=== PATIENT | male | born 1995 ===

== ENCOUNTER 2021-05-15 03:19 | Emergency (ER) | payer OTHER, SELFPAY ==
[2021-05-15 03:46] VITALS: BP 122/72; PULSE 57; RESP 16; TEMP 36.9; O2SAT 100; BMI 19.8
== END 2021-05-15 06:18 | disposition left against medical advice (07) ==
LOC: HO.ED 06:14
PROVIDERS: Emergency Provider Emergency Medicine; PCP Internal Medicine
DX: K08.89 Other specified disorders of teeth and supporting structures (principal)
CPT/HCPCS: 99281; 99282

== ENCOUNTER 2022-12-03 13:11 | Outpatient (AMB) | payer OTHER, SELFPAY ==
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
[2022-12-03 13:17] VITALS: BP 116/72; PULSE 87; O2SAT 99; BMI 19.3
== END 2022-12-03 14:04 | disposition home or self-care (01) ==
PROVIDERS: PCP Nurse Practitioner Family; Visit Provider Nurse Practitioner Family
DX: R19.7 Diarrhea, unspecified (principal); L98.9 Disorder of the skin and subcutaneous tissue, unspecified; G47.00 Insomnia, unspecified; F32.89 Other specified depressive episodes; F41.9 Anxiety disorder, unspecified
CPT/HCPCS: 96127; 99204

== ENCOUNTER 2023-02-09 11:14 | Outpatient (AMB) | payer OTHER, SELFPAY ==
[2023-02-09 11:17] VITALS: BP 112/76; PULSE 114; O2SAT 99; BMI 19.8
--- NOTE | 2023-02-09 11:17 | A.OFFPC_ITS ---
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 Allergies No Known Allergies Allergy (Verified 02/09/23 11:30) Medication List - Last Reconciled 02/09/23 by HUSSEIN Purvis docusate sodium (Colace) 100 mg PO DAILY PRN escitalopram oxalate 5 mg PO DAILY hydroxyzine HCl 50 mg (2 x 25 mg) PO BEDTIME PRN omeprazole 20 mg PO DAILY Tobacco use date assessed: 02/09/23 Dental Screening Dental Screen Date: 02/09/23 Did you have a dental visit in the last 12 months?: Yes Did you have a dental problem in the last 6 months where you did not have access to dental care?: No Was dental information given to patient?: Patient has dentist HPI discuss sleeping/eye exam HPI Details Patient is a 27-year-old male who presents today for an eye exam. Medical history significant for depression, GERD, PTSD, anxiety, asthma, insomnia. Reports still feeling anxious on escitalopram. Reports hydroxyzine is not helping much with insomnia. Reports decreased hearing in his right ear for long time now, will refer for hearing test. Reports he needs eye exam to apply for SSI, reports being on SSI in the past due to cannot see out of his right eye and left eye blurry vision, also reports he needs glasses, will refer to Ophthalmology. No shortness of breath or chest pain. Started seeing counseling for mental health. Patient was encouraged to complete blood work. [facility] Surgical History S/P appendectomy Family History Mother No problems noted. Father No problems noted. Social History Housing: House Patient Tobacco Use Status: Never used Tobacco service: No Current occupational status: unemployed Cognitive needs: No Hearing needs: No Vision needs: Yes Questionnaire PHQ-9 Over the last 2 weeks, how often have you been bothered by any of the following problems? 1. Little interest or pleasure in doing things: nearly every day 2. Feeling down, depressed, or hopeless: nearly every day 3. Trouble falling or staying asleep, or sleeping too much: nearly every day 4. Feeling tired or having little energy: nearly every day 5. Poor appetite or overeating: nearly every day 6. Feeling bad about yourself - or that you are a failure or have let yourself or your family down: not at all 7. Trouble concentrating on things, such as reading the newspaper or watching television: nearly every day 8. Moving or speaking so slowly that other people could have noticed. Or the opposite - being so fidgety or restless that you have been moving around a lot more than usual: nearly every day 9. Thoughts that you would be better off or of hurting yourself in some way: not at all Total score: 21 Depression Screening Interpretation: Positive Depression Screening Follow-up: New Medication prescribed and Community Mental Health Worker F/U Depression Screening Done: Yes 13306 - PHQ-9 Billing: Yes Source: Developed by Drs. Reagan Medrano, Ngoc Washburn, Kwaku Alas and colleagues, with an educational carleen from [employer]. Thrive Questionnaire Date Thrive assessed: 12/03/22 AUDIT C Alcohol Use Questionnaire (AUDIT-C) 1. How often do you have a drink containing alcohol?: Never 3. How often do you have six or more drinks on one occasion?: Never Total Score: 0 Score Reviewed/Action Taken: No PASCUAL-7 AMB Questionnaire PASCUAL-7 Date PASCUAL - 7 assessed: 12/03/22 Feeling nervous, anxious, or on edge: 3 = Nearly every day Not being able to stop or control worryin = Nearly every day Worrying too much about different things: 3 = Nearly every day Trouble relaxin = Nearly every day Being so restless that it is hard to sit still: 3 = Nearly every day Becoming easily annoyed or irritable: 3 = Nearly every day Feeling afraid as if something awful might happen: 0 = Not at all Total PASCUAL-7 score (0-4 normal; 5-9 mild; 10-14 moderate; 15-21 severe): 18 Source: Developed by Drs. Reagan Medrano, Kwaku Fuenteske and colleagues, with an educational carleen from [employer]. PASCUAL-7 Assessment Billing PASCUAL-7 Assessment Tool: PASCUAL-7 Assessment 65181 Review of Systems Const Denies body aches, Denies chills, Denies fever(s) and Denies headache(s) Eyes Reports as per HPI ENT Reports as per HPI, Denies dizziness, Denies otalgia, Denies headache(s), Denies nasal discharge, Denies sinus pain and Denies sore throat Card Denies chest pain, Denies edema, Denies lightheadedness and Denies dyspnea Resp Denies cough, Denies dyspnea and Denies wheezing GI Denies abdominal pain Denies dysuria Musc Denies myalgias Skin/Breast Denies rash Neuro Denies dizziness and Denies headache(s) Aller/Immun Denies wheezing Physical exam (Primary Care) Vital Signs: Last Vital Signs Pulse 114 H 02/09/23 11:17 BP 112/76 02/09/23 11:17 Pulse Ox 99 02/09/23 11:17 Oxygen Delivery Method Room Air 02/09/23 11:17 BMI result Body Mass Index 19.8 Tobacco/Smoking Status: Tobacco use Status Tobacco use date assessed 02/09/23 02/09/23 11:18 Patient Tobacco Use Status Never used Tobacco 02/09/23 11:18 PHQ-9: PHQ-9 Score PHQ-9: Total score 21 02/09/23 11:32 Depression Screening Interpretation: Positive Depression Screening Follow-up: New Medication prescribed and Community Mental Health Worker F/U Thrive Assessment: Date of Thrive Assessment Date Thrive assessed 12/03/22 02/09/23 11:18 Const General: cooperative and no acute distress Orientation/consciousness: patient oriented x3 HENMT Head: Yes normocephalic and Yes atraumatic Ears: TM's normal bilaterally Face and sinus: Yes sinuses nontender Mouth: oropharynx normal and moist mucous membranes Throat: Yes posterior oropharynx normal Eyes General: appearance normal, both eyes and all related structures Pupils: Equal, round and reactive pupils present EOM: EOMs intact bilaterally Neck Neck: Yes normal visual inspection and Yes full ROM Resp Effort & Inspection: normal respiratory effort and able to speak in complete sentences Auscultation: clear to auscultation bilaterally, no crackles, no rales, no rhonchi and no wheezes Cardio Rate: regular rate Rhythm: regular rhythm Heart sounds: S1 normal heart sound present and S2 normal heart sound present GI Auscultation: normal bowel sounds Skin General skin exam: no rashes or lesions noted Neuro General: patient oriented x3 Cranial nerves: Yes Equal, round and reactive pupils present Gait exam (Neuro): Normal gait present Extrem General: Yes full ROM and No edema Office Procedures Vision Screening Right Eye: 0/0 Left Eye: 20/100 Bilateral: 20/50 Color: Pass Corrected: Fail Steropsis: Pass Overall Vision Screening Results: Fail 25029 - Vision Screening Assessment and Plan Assessment & Plan (1) Decreased hearing of right ear: Code(s): H91.91 - Unspecified hearing loss, right ear Plan: Referral for hearing test (2) Eye exam abnormal: Code(s): H57.9 - Unspecified disorder of eye and adnexa Plan: Failed vision screening Ophthalmology referral for an evaluation and treatment Patient does not drive (3) Insomnia: Code(s): G47.00 - Insomnia, unspecified Plan: Reinforced sleep hygiene Start trazodone 25 mg at bedtime p.r.n. Continue hydroxyzine 50 mg at bedtime p.r.n. (4) Depression: Code(s): F32.A - Depression, unspecified Qualifiers: Depression Type: other depression Qualified Code(s): F32.89 - Other specified depressive episodes Plan: Continue to follow-up with counseling Increase escitalopram to 10 mg daily and follow-up in 2 months (5) Anxiety: Code(s): F41.9 - Anxiety disorder, unspecified Plan: Same as above Orders: Orders AMB Vision Screening Today Z01.00 - Encounter for examination of eyes and vision without abnormal findings Referrals Audiology Referral H91.91 - Unspecified hearing loss, right ear Ophthalmology Referral H57.9 - Unspecified disorder of eye and adnexa Medications: New escitalopram oxalate 10 mg PO DAILY 30 tabs 1RF F32.A - Depression, unspecified, F41.9 - Anxiety disorder, unspecified trazodone 25 mg (1/2 x 50 mg) PO BEDTIME PRN 14 tabs 0RF insomnia G47.00 - Insomnia, unspecified Discontinued escitalopram oxalate Discontinued Reason: Doctor's Order 5 mg PO DAILY 30 tabs 1RF F32.A - Depression, unspecified, F41.9 - Anxiety disorder, unspecified Coding Level of Care Code Est Pt Level 4 (58171) Diagnoses Decreased hearing of right ear H91.91 Eye exam abnormal H57.9 Insomnia G47.00 Other depression F32.89 Depression Type: other depression Anxiety F41.9 CPT Codes Vision Screening - Vision Screenin - Vision Screening ([id number]) Additional Codes PASCUAL-7 Assessment Billing - PASCUAL-7 Assessment Tool: PASCUAL-7 Assessment 94102 ([id number])
== END 2023-02-09 11:42 | disposition home or self-care (01) ==
PROVIDERS: PCP Nurse Practitioner Family; Visit Provider Nurse Practitioner Family
DX: H91.91 Unspecified hearing loss, right ear (principal); H57.9 Unspecified disorder of eye and adnexa; G47.00 Insomnia, unspecified; F32.89 Other specified depressive episodes; F41.9 Anxiety disorder, unspecified
CPT/HCPCS: 96127; 99173; 99214

== ENCOUNTER 2023-09-27 09:18 | Outpatient (AMB) | payer OTHER, SELFPAY ==
[2023-09-27 09:28] VITALS: BP 102/68; PULSE 98; O2SAT 97; BMI 19.5
--- NOTE | 2023-09-27 09:28 | MHC.PC.OV ---
Vital Signs 09/27/23 09:28 Height 5 ft 8 in Weight 128 lb 0.8 oz BMI 19.5 BP 102/68 Blood Pressure Location Lt brachial Position Sitting Pulse 98 Pulse Source Pulse Oximeter Pulse Oximetry (%) 97 Oxygen Delivery Method Room Air Intake Visit Reasons: Annual Exan-BACO pt Intake Note: Patient is here today for a physical. Special Education Associate Required: No Allergies No Known Allergies Allergy (Verified 09/27/23 10:29) Medication List - Last Reconciled 09/27/23 by Raul Basurto MD docusate sodium (Colace) 100 mg PO DAILY PRN escitalopram oxalate 10 mg PO DAILY hydroxyzine HCl 50 mg (2 x 25 mg) PO BEDTIME PRN omeprazole 20 mg PO DAILY trazodone 50 mg PO BEDTIME Tobacco use date assessed: 09/27/23 Dental Screening Dental Screen Date: 09/27/23 Did you have a dental visit in the last 12 months?: No Did you have a dental problem in the last 6 months where you did not have access to dental care?: No Was dental information given to patient?: Patient has dentist HPI Annual Exan-BACO pt HPI Details 28-year-old male presents to the office requesting an annual physical. I will be assuming his care as his primary provider has left the practice. Patient is reporting history of anxiety, PTSD for which he is on disability. He is not working currently. Taking trazodone and citalopram as medications. He has a therapist in [place]. Recently he has been assigned a psychiatrist. Also complaining of lower back pain. Worse on bending forwards. No history of fall or injury. [facility] Medical History (Updated 09/27/23 @ 10:31 by Raul Basurto MD) Anxiety PTSD (post-traumatic stress disorder) Surgical History S/P appendectomy Family History Mother No problems noted. Father No problems noted. Social History Housing: House Patient Tobacco Use Status: Never used Tobacco service: No Current occupational status: unemployed Cognitive needs: No Hearing needs: No Vision needs: Yes Questionnaire PHQ-9 Over the last 2 weeks, how often have you been bothered by any of the following problems? 1. Little interest or pleasure in doing things: not at all 2. Feeling down, depressed, or hopeless: not at all 3. Trouble falling or staying asleep, or sleeping too much: not at all 4. Feeling tired or having little energy: not at all 5. Poor appetite or overeating: not at all 6. Feeling bad about yourself - or that you are a failure or have let yourself or your family down: not at all 7. Trouble concentrating on things, such as reading the newspaper or watching television: not at all 8. Moving or speaking so slowly that other people could have noticed. Or the opposite - being so fidgety or restless that you have been moving around a lot more than usual: not at all 9. Thoughts that you would be better off or of hurting yourself in some way: not at all Total score: 0 Depression Screening Interpretation: Negative Depression Screening Done: Yes 48893 - PHQ-9 Billing: Yes Source: Developed by Drs. Reagan Medrano, Ngoc Washburn, Kwaku Alas and colleagues, with an educational carleen from [employer]. Thrive Questionnaire Date Thrive assessed: 09/27/23 I am a: Patient What is your living situation today?: I have a steady place to live Within the past 12 months, did the food you bought not last and you didn't have the money to get more?: Never true Within the past 12 months, did you worry whether your food would run out before you got money to buy more?: Never true Do you have trouble paying for medicines?: No Do you have trouble getting transportation to medical appointments?: No Do you have trouble paying your heating and electricity bill?: No Do you have trouble taking care of your child, family member or friend?: No Do you have trouble with day-to-day activities such as bathing, preparing meals, shopping, managing finances, etc.?: No Are you currently unemployed and looking for a job?: No Are you interested in more education?: No Please select the resources that you would like help with: None Currently or been in a relationship where the following occur: No concerns reported THRIVE Score: 0 AUDIT C Alcohol Use Questionnaire (AUDIT-C) 1. How often do you have a drink containing alcohol?: Never 3. How often do you have six or more drinks on one occasion?: Never Total Score: 0 Score Reviewed/Action Taken: No PASCUAL-7 AMB Questionnaire PASCUAL-7 Date PASCUAL - 7 assessed: 09/27/23 Feeling nervous, anxious, or on edge: 0 = Not at all Not being able to stop or control worryin = Not at all Worrying too much about different things: 0 = Not at all Trouble relaxin = Not at all Being so restless that it is hard to sit still: 0 = Not at all Becoming easily annoyed or irritable: 0 = Not at all Feeling afraid as if something awful might happen: 0 = Not at all Total PASCUAL-7 score (0-4 normal; 5-9 mild; 10-14 moderate; 15-21 severe): 0 Source: Developed by Drs. Reagan Medrano, Ngoc Washburn, Kwaku Alas and colleagues, with an educational carleen from [employer]. PASCUAL-7 Assessment Billing PASCUAL-7 Assessment Tool: PASCUAL-7 Assessment 41252 Physical exam (Primary Care) Vital Signs: Last Vital Signs Pulse 98 09/27/23 09:28 BP 102/68 09/27/23 09:28 Pulse Ox 97 09/27/23 09:28 Oxygen Delivery Method Room Air 09/27/23 09:28 Care Plan Goal for BP management: Blood pressure is stable. BMI result Body Mass Index 19.5 Tobacco/Smoking Status: Tobacco use Status Tobacco use date assessed 09/27/23 09/27/23 09:29 Patient Tobacco Use Status Never used Tobacco 09/27/23 09:29 PHQ-9: PHQ-9 Score PHQ-9: Total score 0 09/27/23 09:57 Depression Screening Interpretation: Negative Thrive Assessment: Date of Thrive Assessment Date Thrive assessed 09/27/23 09/27/23 09:29 Currently or been in a relationship where the following occur: No concerns reported Const General: cooperative and healthy appearing Nutritional Appearance: well nourished Orientation/consciousness: patient oriented x3 Limitations: no limitations HENMT Head: Yes normal to inspection Eyes General: appearance normal, both eyes and all related structures Neck Neck: Yes normal visual inspection Chest Chest palpation & inspection: normal palpation of entire chest wall Resp Effort & Inspection: normal respiratory effort Neuro General: patient oriented x3 Assessment and Plan Assessment & Plan (1) PTSD (post-traumatic stress disorder): Code(s): F43.10 - Post-traumatic stress disorder, unspecified Plan: Patient has been assigned a psychiatrist. I encouraged him to see him and get treatment. (2) Anxiety: Code(s): F41.9 - Anxiety disorder, unspecified (3) Annual physical exam: Code(s): Z00.00 - Encounter for general adult medical examination without abnormal findings Plan: Blood work has been ordered. (4) Low back pain: Code(s): M54.50 - Low back pain, unspecified Plan: Physical therapy has been ordered. Medications: Changed From trazodone 25 mg (1/2 x 50 mg) PO BEDTIME PRN 14 tabs 0RF insomnia G47.00 - Insomnia, unspecified To trazodone 50 mg PO BEDTIME 30 tabs 0RF insomnia G47.00 - Insomnia, unspecified Refilled escitalopram oxalate 10 mg PO DAILY 30 tabs 1RF F32.A - Depression, unspecified, F41.9 - Anxiety disorder, unspecified Coding Level of Care Code Est Pt Prev Care [id number]) Diagnoses PTSD (post-traumatic stress disorder) F43.10 Anxiety F41.9 Annual physical exam Z00.00 Low back pain M54.50 Additional Codes PASCUAL-7 Assessment Billing - PASCUAL-7 Assessment Tool: PASCUAL-7 Assessment 37113 ([id number])
== END 2023-09-27 13:03 | disposition home or self-care (01) ==
PROVIDERS: PCP Nurse Practitioner Family; Visit Provider Internal Medicine
DX: Z00.00 Encounter for general adult medical examination without abnormal findings (principal); F43.10 Post-traumatic stress disorder, unspecified; F41.9 Anxiety disorder, unspecified; M54.50 Low back pain, unspecified
CPT/HCPCS: 99395